=== PATIENT | male | born 1990 | race African-American/Black ===

== ENCOUNTER 2018-12-08 11:42 | Emergency (ER) | payer MEDICAID ==
[~2018-12-08] VITALS: Ht 188 cm; Wt 116.0 kg
[2018-12-08 15:20] VITALS: BP 148/68
== END 2018-12-08 15:37 | disposition home or self-care (01) ==
LOC: ER 11:42
DX: S60.455A Superficial foreign body of left ring finger, initial encounter (principal); F17.210 Nicotine dependence, cigarettes, uncomplicated; F12.10 Cannabis abuse, uncomplicated; W45.8XXA Other foreign body or object entering through skin, initial encounter; Y93.89 Activity, other specified; Y92.018 Other place in single-family (private) house as the place of occurrence of the external cause
CPT/HCPCS: 99283

== ENCOUNTER 2019-08-24 14:17 | Emergency (ER) | payer MEDICAID, OTHER ==
[~2019-08-24] VITALS: Ht 182.9 cm; Wt 110.0 kg
[2019-08-24 14:32] VITALS: BP 153/80
== END 2019-08-24 19:47 | disposition left against medical advice (07) ==
LOC: ER 14:17
DX: Z53.21 Procedure and treatment not carried out due to patient leaving prior to being seen by health care provider (principal)

== ENCOUNTER 2019-08-30 17:00 | Emergency (ER) | payer OTHER ==
[~2019-08-30] VITALS: Ht 188 cm; Wt 122.0 kg
[2019-08-30 17:46] VITALS: BP 110/68
== END 2019-08-30 20:13 | disposition left against medical advice (07) ==
LOC: ER 17:00
DX: R22.9 Localized swelling, mass and lump, unspecified (principal); Z53.21 Procedure and treatment not carried out due to patient leaving prior to being seen by health care provider

== ENCOUNTER 2019-09-10 14:51 | Emergency (ER) | payer OTHER | END 2019-09-10 16:45 | disposition left against medical advice (07) | LOC: ER 14:58 | DX: Z53.21 Procedure and treatment not carried out due to patient leaving prior to being seen by health care provider (principal) ==

== ENCOUNTER → 2019-09-18 | Emergency (ER) | payer OTHER | END | disposition left against medical advice (07) | LOC: ER 14:17 | DX: R21 Rash and other nonspecific skin eruption (principal); Z53.21 Procedure and treatment not carried out due to patient leaving prior to being seen by health care provider ==

== ENCOUNTER 2019-10-05 09:43 | Emergency (ER) | payer OTHER | END 2019-10-05 11:12 | disposition left against medical advice (07) | LOC: ER 09:43 | DX: Z53.21 Procedure and treatment not carried out due to patient leaving prior to being seen by health care provider (principal) ==

== ENCOUNTER 2019-10-21 17:36 | Emergency (ER) | payer OTHER | END 2019-10-21 18:22 | disposition left against medical advice (07) | LOC: ER 17:36 | DX: R68.89 Other general symptoms and signs (principal); Z53.21 Procedure and treatment not carried out due to patient leaving prior to being seen by health care provider ==

== ENCOUNTER 2019-10-23 10:55 | Emergency (ER) | payer OTHER ==
[~2019-10-23] VITALS: Ht 188 cm; Wt 158.0 kg
[2019-10-23 11:01] VITALS: BP 147/69
== END 2019-10-23 11:50 | disposition home or self-care (01) ==
LOC: ER 11:46
DX: S91.339 Puncture wound without foreign body, unspecified foot (principal); F12.10 Cannabis abuse, uncomplicated
CPT/HCPCS: 99283

== ENCOUNTER 2019-12-29 18:01 | Emergency (ER) | payer OTHER ==
[~2019-12-29] VITALS: Ht 188 cm; Wt 113.0 kg
[2019-12-29 19:35] VITALS: BP 138/74
[2020-01-01 04:10] LABS: NEISSERIA GONORRHOEAE NAA Negative (Negative)
== END 2019-12-29 19:35 | disposition home or self-care (01) ==
LOC: ER 18:01
DX: Z20.2 Contact with and (suspected) exposure to infections with a predominantly sexual mode of transmission (principal); F20.9 Schizophrenia, unspecified; F32.9 Major depressive disorder, single episode, unspecified; F12.10 Cannabis abuse, uncomplicated; Z87.828 Personal history of other (healed) physical injury and trauma
CPT/HCPCS: 87491; 87591; 99281; 99283

== ENCOUNTER 2020-01-06 14:18 | Emergency (ER) | payer OTHER ==
[~2020-01-06] VITALS: Ht 188 cm; Wt 122.0 kg
[2020-01-06 14:55] VITALS: BP 141/86
== END 2020-01-06 14:56 | disposition home or self-care (01) ==
LOC: ER 14:18
DX: S01.511A Laceration without foreign body of lip, initial encounter (principal); F12.10 Cannabis abuse, uncomplicated; Z48.02 Encounter for removal of sutures; Z98.890 Other specified postprocedural states; X58.XXXA Exposure to other specified factors, initial encounter; Y93.89 Activity, other specified; Y92.89 Other specified places as the place of occurrence of the external cause; Y99.8 Other external cause status
CPT/HCPCS: 99281

== ENCOUNTER 2020-01-31 11:18 | Emergency (ER) | payer OTHER ==
[~2020-01-31] VITALS: Ht 188 cm; Wt 122.0 kg
[2020-01-31 11:28] VITALS: BP 152/77
== END 2020-01-31 12:31 | disposition left against medical advice (07) ==
LOC: ER 11:18
DX: Z53.21 Procedure and treatment not carried out due to patient leaving prior to being seen by health care provider (principal)

== ENCOUNTER 2020-06-03 06:00 | Emergency (ER) | payer OTHER ==
[~2020-06-03] VITALS: Ht 188 cm; Wt 120.2 kg
[2020-06-03 07:00] VITALS: BP 147/70
[2020-06-03] MEDS ORDERED: IBUPROFEN 600MG TABLET PO ONE (07:00)
== END 2020-06-03 07:11 | disposition home or self-care (01) ==
LOC: ER 06:00
DX: K12.0 Recurrent oral aphthae (principal); F12.10 Cannabis abuse, uncomplicated; F32.9 Major depressive disorder, single episode, unspecified; Z98.890 Other specified postprocedural states
CPT/HCPCS: 99282

== ENCOUNTER 2021-09-20 14:04 | Emergency (ER) | payer OTHER ==
[~2021-09-20] VITALS: Ht 180.3 cm; Wt 100.0 kg
[2021-09-20] MEDS ORDERED: LORAZEPAM 1MG TABLET PO ONE (15:45)
[2021-09-20 18:35] LABS: BASOPHILS % 0.6 % (0.0-2.0); CHLORIDE 105 mEq/L (98-107); EOSINOPHILS % 0.3 % (0.0-5.0); HEMATOCRIT. 44.2 % (42.0-52.0); HEMOGLOBIN. 14.6 g/dL (14.0-18.0); LYMPHOCYTES % 16.6 % (20.0-50.0); MEAN CORPUSCULAR HEMOGLOBIN 27.4 pg (28.0-32.0); MEAN CORPUSCULAR VOLUME 82.9 fL (80.0-94.0); MEAN PLATELET VOLUME 8.8 fl (7.4-10.4); MONOCYTES % 13.1 % (2.0-8.0); NEUTROPHILS % 69.4 % (40.0-76.0); PLATELET 227 x1000/uL (130-400); RED BLOOD CELL COUNT 5.33 mill/uL (4.7-6.1); RED CELL DISTRIBUTION WIDTH 15.1 % (11.6-14.6)
[2021-09-20 18:39] LABS: ETHANOL BLOOD < 10 mg/dL
[2021-09-21 06:00] VITALS: BP 185/100
== END 2021-09-21 07:01 | disposition home or self-care (01) ==
LOC: ER 14:04
DX: F15.10 Other stimulant abuse, uncomplicated (principal); R41.82 Altered mental status, unspecified; I10 Essential (primary) hypertension; F12.10 Cannabis abuse, uncomplicated; F99 Mental disorder, not otherwise specified
CPT/HCPCS: 36415; 80053; 80320; 85025; 93005; 99284; G0480

== ENCOUNTER 2021-09-27 06:12 | Emergency (ER) | payer OTHER ==
[~2021-09-27] VITALS: Ht 188 cm; Wt 118.0 kg
[2021-09-27 07:14] LABS: BASOPHILS % 0.8 % (0.0-2.0); EOSINOPHILS % 0.9 % (0.0-5.0); HEMATOCRIT. 43.1 % (42.0-52.0); HEMOGLOBIN. 14.2 g/dL (14.0-18.0); LYMPHOCYTES % 15.4 % (20.0-50.0); MEAN CORPUSCULAR HEMOGLOBIN 27.7 pg (28.0-32.0); MEAN PLATELET VOLUME 9.1 fl (7.4-10.4); MONOCYTES % 11.3 % (2.0-8.0); NEUTROPHILS % 71.6 % (40.0-76.0); PLATELET 261 x1000/uL (130-400); RED BLOOD CELL COUNT 5.13 mill/uL (4.7-6.1); RED CELL DISTRIBUTION WIDTH 14.5 % (11.6-14.6)
[2021-09-27 07:18] LABS: CHLORIDE 109 mEq/L (98-107)
[2021-09-27 07:21] LABS: ETHANOL BLOOD < 10 mg/dL
[2021-09-27] MEDS ORDERED: KETOROLAC 60MG/2ML VIAL IM ONE (07:30)
[2021-09-27] MEDS ORDERED: IBUP-2030 MT (08:04)
[2021-09-27 08:37] VITALS: BP 162/98
== END 2021-09-27 08:39 | disposition home or self-care (01) ==
LOC: ER 06:12
DX: J06.9 Acute upper respiratory infection, unspecified (principal); I10 Essential (primary) hypertension; F12.10 Cannabis abuse, uncomplicated; F15.10 Other stimulant abuse, uncomplicated
CPT/HCPCS: 36415; 71045; 80053; 80320; 83690; 83880; 84484; 85025; 93005; 99285; J1885; G0480

== ENCOUNTER 2022-03-19 19:07 | Emergency (ER) | payer OTHER ==
[~2022-03-19] VITALS: Ht 188 cm; Wt 123.0 kg
[~2022-03-19 19:07] MED LIST: IBUP-2030 MT
[2022-03-19] MEDS ORDERED: IBUPROFEN 400MG TABLET PO ONE (21:00)
[2022-03-19] MEDS ORDERED: TETANUS, DIPHTHERIA, PERTUSSIS VAC/PF 0.5ML (>10YR OLD) IM ONE (21:15)
[2022-03-19 21:39] VITALS: BP 152/98
== END 2022-03-19 22:33 | disposition home or self-care (01) ==
LOC: ER 19:07
DX: S01.21XA Laceration without foreign body of nose, initial encounter (principal); I10 Essential (primary) hypertension; F15.10 Other stimulant abuse, uncomplicated; F12.10 Cannabis abuse, uncomplicated; Z98.890 Other specified postprocedural states; Y04.0XXA Assault by unarmed brawl or fight, initial encounter; Y93.89 Activity, other specified; Y92.89 Other specified places as the place of occurrence of the external cause
CPT/HCPCS: 12011; 90471; 90715; 99283

== ENCOUNTER 2023-10-14 23:15 | Emergency (ER) | payer OTHER ==
[~2023-10-14] VITALS: Ht 188 cm; Wt 66.0 kg
[2023-10-14 23:29] VITALS: BP 184/99; PULSE 66; RESP 14; TEMP 97.7; O2SAT 100
[2023-10-14] MEDS ORDERED: IBUP-2029 MT (23:47)
[2023-10-14] MEDS: IBUPROFEN 600MG TABLET PO ONE (23:49)
== END 2023-10-14 23:54 | disposition home or self-care (01) ==
LOC: ER 23:34
DX: M79.10 Myalgia, unspecified site (principal); I10 Essential (primary) hypertension; F20.9 Schizophrenia, unspecified; Z98.890 Other specified postprocedural states
CPT/HCPCS: 99282